=== PATIENT | female | born 1965 | race Caucasian/White ===

== ENCOUNTER 2023-08-25 15:58 | Emergency (ER) | payer OTHER ==
[~2023-08-25] VITALS: Ht 167.6 cm; Wt 80.3 kg
[2023-08-25 17:26] VITALS: BP 121/77; TEMP 98.4; O2SAT 99
== END 2023-08-25 17:30 | disposition home or self-care (01) ==
LOC: EDBD 16:00 → ER 16:00
DX: F10.139 Alcohol abuse with withdrawal, unspecified (principal); Z60.2 Problems related to living alone; Y90.9 Presence of alcohol in blood, level not specified

== ENCOUNTER 2023-11-04 01:52 | Inpatient (IN) | payer OTHER ==
[~2023-11-04] VITALS: Ht 170.2 cm; Wt 98.0 kg
[2023-11-04] MEDS ORDERED: IV NS 0.9% 1,000 ML BAG IV ONE (02:00)
[2023-11-04] MEDS ORDERED: ONDANSETRON HCL/PF 4 MG/2 ML VIAL ONE ×3 (02:18→09:35)
[2023-11-04] MEDS ORDERED: PANTOPRAZOLE 40 MG VIAL ONE (02:18)
[2023-11-04] MEDS ORDERED: PANTOPRAZOLE 80 MG in IV NS 0.9% 500 ML IV ONE (02:30)
[2023-11-04] MEDS ORDERED: ONDANSETRON HCL/PF 4 MG/2 ML VIAL IV ONE ×2 (02:30→04:00)
[2023-11-04 02:42] LABS: BASOPHILS % (AUTO) 0.3 % (0.0-2.0); HEMATOCRIT 41 % (39-51); HEMOGLOBIN 13.9 g/dL (13.5-17.5); LYMPHOCYTES # (AUTO) 0.9 K/uL (0.8-4.8); LYMPHOCYTES % (AUTO) 7.1 % (20.0-44.0); MEAN CORPUSCULAR HEMOGLOBIN 29 PG (26.0-33.0); MEAN CORPUSCULAR HGB CONC 34 g/dl (31.0-36.0); MEAN CORPUSCULAR VOLUME 87 fL (80-96); MONOCYTES # (AUTO) 0.5 K/uL (0.1-1.30); NEUTROPHILS # (AUTO) 11.2 K/uL (1.8-8.9); NEUTROPHILS % (AUTO) 88.6 % (43.0-81.0); PLATELET COUNT (AUTO) 140 K/uL (150-450); RED BLOOD CELL COUNT(AUTO) 4.71 MIL/uL (4.5-6.0); RED CELL DISTRIBUTION WIDTH 17.1 % (11.5-15.0); WHITE BLOOD COUNT (AUTO) 12.7 K/uL (4.3-11.0)
[2023-11-04 02:46] LABS: CALCIUM, SERUM 8.7 mg/dL (8.5-10.1); CARBON DIOXIDE 18 mmol/L (21-32); CHLORIDE 92 mmol/L (98-107); CREATININE 1.1 mg/dL (0.6-1.3); GLUCOSE 178 mg/dL (74-106); POTASSIUM 3.2 mmol/L (3.5-5.1); SODIUM SERUM 136 mmol/L (136-145); UREA NITROGEN, BLOOD 16 mg/dL (7-18)
[2023-11-04 02:50] LABS: INR 0.96 (0.91-1.10); PARTIAL THROMBOPLASTIN TIME 22.7 SEC (24.3-34.3); PROTHROMBIN TIME 10.2 SECS (9.2-11.1)
[2023-11-04 02:53] LABS: ALANINE AMINOTRANSFERASE 33 U/L (12-78); ALBUMIN 4.6 g/dL (3.4-5.0); ALCOHOL, BLOOD 361 mg/dL (0-10); ALKALINE PHOSPHATASE 107 U/L (46-116); ASPARTATE AMINOTRANSFERASE 43 U/L (15-37); BILIRUBIN,DIRECT 0.2 mg/dL (0.0-0.2); BILIRUBIN,TOTAL 0.6 mg/dL (0.2-1.0); TOTAL PROTEIN, SERUM 8.4 g/dL (6.4-8.2)
[2023-11-04 02:55] LABS: SALICYLATE 1.4 mg/dL (2.8-20.0)
[2023-11-04 02:56] LABS: ACETAMINOPHEN <10 ug/ml (10-30)
[2023-11-04] MEDS ORDERED: MORPHINE SULFATE INJ 4 MG/ML DISP.SYRIN ONE (03:15)
[2023-11-04] MEDS ORDERED: MORPHINE SULFATE INJ 2 MG/ML DISP.SYRIN IV ONE (03:30)
[2023-11-04] MEDS ORDERED: Thiamine 100 MG/ML VIAL ONE (04:57)
[2023-11-04] MEDS ORDERED: Thiamine 100 MG in IV D5W 50 ML IV ONE ×7 (05:00→13:00)
[2023-11-04] MEDS ORDERED: OCTREOTIDE 50 MCG in IV NS 0.9% 50 ML IJ ONE (07:30)
[2023-11-04] MEDS ORDERED: CEFTRIAXONE 1GM BAG (ER ONLY) 1 GM/50 ML PIGGYBACK IV ONE (07:30)
[2023-11-04] MEDS ORDERED: CEFTRIAXONE 1GM BAG (ER ONLY) 50 ML IV ONE (09:08)
[2023-11-04] MEDS ORDERED: ONDANSETRON HCL/PF - ER 4 MG/2 ML VIAL IV ONE (09:30)
[2023-11-04] MEDS ORDERED: MORPHINE SULFATE INJ 2 MG/ML DISP.SYRIN IV PRN (09:30)
[2023-11-04] MEDS ORDERED: POTASSIUM CHLORIDE 20 MEQ TAB.PRT.SR PO ONE (10:00)
[2023-11-04] MEDS ORDERED: LORAZEPAM INJ 2 MG/ML VIAL IV ONE (10:30)
[2023-11-04 10:45] LABS: CALCIUM, SERUM 7.8 mg/dL (8.5-10.1); CREATININE 0.9 mg/dL (0.6-1.3); POTASSIUM 3.6 mmol/L (3.5-5.1)
[2023-11-04 10:56] LABS: ALBUMIN 3.9 g/dL (3.4-5.0); BILIRUBIN,TOTAL 0.7 mg/dL (0.2-1.0); MAGNESIUM 1.6 mg/dL (1.8-2.4); PHOSPHORUS 2.7 mg/dL (2.5-4.9); TOTAL PROTEIN, SERUM 7.3 g/dL (6.4-8.2)
[2023-11-04 11:03] LABS: BASOPHILS % (AUTO) 0.3 % (0.0-2.0); HEMATOCRIT 36 % (39-51); LYMPHOCYTES # (AUTO) 1.1 K/uL (0.8-4.8); LYMPHOCYTES % (AUTO) 7.8 % (20.0-44.0); MEAN CORPUSCULAR HEMOGLOBIN 29 PG (26.0-33.0); MEAN CORPUSCULAR HGB CONC 33 g/dl (31.0-36.0); MEAN CORPUSCULAR VOLUME 88 fL (80-96); MONOCYTES # (AUTO) 1.3 K/uL (0.1-1.30); MONOCYTES % (AUTO) 9.3 % (2.0-12.0); NEUTROPHILS # (AUTO) 11.9 K/uL (1.8-8.9); NEUTROPHILS % (AUTO) 82.6 % (43.0-81.0); PLATELET COUNT (AUTO) 114 K/uL (150-450); RED BLOOD CELL COUNT(AUTO) 4.11 MIL/uL (4.5-6.0); RED CELL DISTRIBUTION WIDTH 17.2 % (11.5-15.0); WHITE BLOOD COUNT (AUTO) 14.4 K/uL (4.3-11.0)
[2023-11-04 12:00] VITALS: BP 162/90; TEMP 99.2; O2SAT 91
[2023-11-04] MEDS ORDERED: IV LR 1000 ML 1,000 ML IV PRN (13:00)
[2023-11-04] MEDS ORDERED: ACETAMINOPHEN 325 MG TABLET PO PRN (13:00)
[2023-11-04] MEDS ORDERED: Z GUARD REMEDY 4 OZ OINT TP PRN (13:00)
[2023-11-04] MEDS ORDERED: ONDANSETRON HCL/PF 4 MG/2 ML VIAL IVP PRN (13:00)
[2023-11-04] MEDS ORDERED: LORAZEPAM INJ 2 MG/ML VIAL IV PRN (13:00)
[2023-11-04] MEDS: Magnesium 1GM/D5W 100ML PREMIX 100 ML IV SCH ×4 (13:24→16:46)
[2023-11-04] MEDS: PANTOPRAZOLE 40 MG VIAL IV SCH (13:55)
[2023-11-04 14:53] LABS: HEMATOCRIT 36 % (39-51); HEMOGLOBIN 11.8 g/dL (13.5-17.5); MEAN CORPUSCULAR HEMOGLOBIN 29 PG (26.0-33.0); MEAN CORPUSCULAR HGB CONC 33 g/dl (31.0-36.0); MEAN CORPUSCULAR VOLUME 89 fL (80-96); PLATELET COUNT (AUTO) 104 K/uL (150-450); RED BLOOD CELL COUNT(AUTO) 4.02 MIL/uL (4.5-6.0); RED CELL DISTRIBUTION WIDTH 17.2 % (11.5-15.0)
[2023-11-04 16:00] VITALS: BP 148/94; TEMP 98.4; O2SAT 94
[2023-11-04] MEDS ORDERED: MIRT7.5T10 PO (18:40)
[2023-11-04] MEDS ORDERED: PANT40TA2 PO (18:40)
[2023-11-04] MEDS ORDERED: TOPI100T38 PO (18:40)
[2023-11-04] MEDS ORDERED: FERR325T23 PO (18:40)
[2023-11-04] MEDS ORDERED: GABA300C PO (18:40)
[2023-11-04] MEDS ORDERED: MULT-213 PO (18:40)
[2023-11-04] MEDS ORDERED: HYDR50TA61 PO (18:40)
[2023-11-04] MEDS ORDERED: TRAZ-257 PO (18:40)
[2023-11-04] MEDS ORDERED: FOLI0.8T3 PO (18:40)
[2023-11-04] MEDS ORDERED: LORA-258 PO (18:40)
[2023-11-04] MEDS ORDERED: ACAM333T8 PO (18:40)
[2023-11-04] MEDS ORDERED: THIA100T88 PO (18:40)
[2023-11-04] MEDS ORDERED: CHOL200059 PO (18:40)
[2023-11-04] MEDS: LORAZEPAM INJ 2 MG/ML VIAL IV PRN (20:44)
[2023-11-04 20:47] LABS: HEMATOCRIT 35 % (39-51); HEMOGLOBIN 11.8 g/dL (13.5-17.5); MEAN CORPUSCULAR HEMOGLOBIN 30 PG (26.0-33.0); MEAN CORPUSCULAR HGB CONC 34 g/dl (31.0-36.0); MEAN CORPUSCULAR VOLUME 88 fL (80-96); PLATELET COUNT (AUTO) 90 K/uL (150-450); WHITE BLOOD COUNT (AUTO) 12.5 K/uL (4.3-11.0)
[2023-11-04 22:00] VITALS: BP 143/83; TEMP 98.6; O2SAT 94
[2023-11-05] VITALS: BP 142/99; TEMP 99; O2SAT 94
[2023-11-05] MEDS: PANTOPRAZOLE 40 MG VIAL IV SCH ×2 (00:27→15:02)
[2023-11-05 02:12] LABS: HEMATOCRIT 35 % (39-51); HEMOGLOBIN 11.8 g/dL (13.5-17.5); MEAN CORPUSCULAR HEMOGLOBIN 30 PG (26.0-33.0); MEAN CORPUSCULAR HGB CONC 34 g/dl (31.0-36.0); MEAN CORPUSCULAR VOLUME 88 fL (80-96); PLATELET COUNT (AUTO) 81 K/uL (150-450); RED BLOOD CELL COUNT(AUTO) 3.98 MIL/uL (4.5-6.0); RED CELL DISTRIBUTION WIDTH 17.3 % (11.5-15.0)
[2023-11-05 06:12] VITALS: BP 148/96; TEMP 98.4
[2023-11-05 07:08] LABS: HEMATOCRIT 36 % (39-51); HEMOGLOBIN 12.2 g/dL (13.5-17.5); LYMPHOCYTES # (AUTO) 0.6 K/uL (0.8-4.8); LYMPHOCYTES % (AUTO) 7.1 % (20.0-44.0); MEAN CORPUSCULAR HEMOGLOBIN 30 PG (26.0-33.0); MEAN CORPUSCULAR HGB CONC 34 g/dl (31.0-36.0); MEAN CORPUSCULAR VOLUME 89 fL (80-96); MONOCYTES # (AUTO) 0.9 K/uL (0.1-1.30); NEUTROPHILS # (AUTO) 7.5 K/uL (1.8-8.9); NEUTROPHILS % (AUTO) 82.9 % (43.0-81.0); PLATELET COUNT (AUTO) 81 K/uL (150-450); RED BLOOD CELL COUNT(AUTO) 4.05 MIL/uL (4.5-6.0); RED CELL DISTRIBUTION WIDTH 17.1 % (11.5-15.0); WHITE BLOOD COUNT (AUTO) 9.1 K/uL (4.3-11.0)
[2023-11-05 07:28] LABS: ALBUMIN 3.8 g/dL (3.4-5.0); BILIRUBIN,TOTAL 1.2 mg/dL (0.2-1.0); CALCIUM, SERUM 8.6 mg/dL (8.5-10.1); CREATININE 0.7 mg/dL (0.6-1.3); MAGNESIUM 2.7 mg/dL (1.8-2.4); PHOSPHORUS 1.3 mg/dL (2.5-4.9); POTASSIUM 3.2 mmol/L (3.5-5.1); TOTAL PROTEIN, SERUM 7.2 g/dL (6.4-8.2)
[2023-11-05 08:00] VITALS: BP 150/94; TEMP 98.8; O2SAT 98
[2023-11-05] MEDS: LORAZEPAM INJ 2 MG/ML VIAL IV PRN ×4 (08:43→20:52)
[2023-11-05] MEDS ORDERED: THIAMINE HCL 100 MG TABLET PO SCH (09:00)
[2023-11-05 09:58] LABS: ANISOCYTOSIS 1+; BASOPHILS % (MANUAL) 0 % (0.0-2.0); EOSINOPHILS % (MANUAL) 0 % (0-4); LYMPHOCYTES % (MANUAL) 8 % (16-48); MONOCYTES % (MANUAL) 9 % (0-11.0); NEUTROPHILS % (MANUAL) 83 (42-76); PLATELET ESTIMATE DECREASED; STOMATOCYTES 1+
[2023-11-05] MEDS: POTASSIUM CHLORIDE 20 MEQ TAB.PRT.SR PO SCH ×2 (11:05→12:00)
[2023-11-05 12:00] VITALS: BP 142/102; TEMP 98.1; O2SAT 98
[2023-11-05 16:00] VITALS: BP 135/99; TEMP 97.9; O2SAT 95
[2023-11-05] MEDS ORDERED: K PHOS NEUTRAL 250 MG TABLET PO ONE (16:00)
[2023-11-05 20:00] VITALS: BP 110/77; TEMP 97.5; O2SAT 96
[2023-11-05] MEDS ORDERED: IV NS W/20MEQ KCL 1L IV ONE ×2 (20:00)
[2023-11-05] MEDS ORDERED: POTASSIUM CL. PREMIX PERIPHER. 50 ML IV SCH (20:00)
[2023-11-06] VITALS: BP 133/96; TEMP 99; O2SAT 97
[2023-11-06] MEDS: PANTOPRAZOLE 40 MG VIAL IV SCH (01:25)
[2023-11-06 02:56] LABS: APPEARANCE,URINE CLEAR (CLEAR); BILIRUBIN,URINE 1+ (NEGATIVE); BLOOD, URINE NEGATIVE Ery/uL (NEGATIVE); COLOR,URINE DARK YELLOW (YELLOW); KETONES,URINE TRACE mg/dL (NEGATIVE); LEUKOCYTE ESTERASE ,URINE NEGATIVE (NEGATIVE); NITRITE, URINE NEGATIVE (NEGATIVE); PROTEIN,URINE 1+ mg/dl (NEGATIVE); UGLUCOSE NEGATIVE (NEGATIVE); UROBILINOGEN,URINE 0.2 EU/dL (0.2)
[2023-11-06 03:02] LABS: ADD URINE CULTURE NO; BACTERIA,URINE Rare /HPF (None Seen); RBC,URINE 0-2 /HPF (0-2); SQUAMOUS EPITHELIAL CELL,UR Few /HPF (None Seen); WBC,URINE 0-2 /HPF (0-3)
[2023-11-06 03:13] LABS: AMPHETAMINE, URINE NEGATIVE (NEGATIVE); BARBITURATE, URINE NEGATIVE (NEGATIVE); COCCAINE, URINE NEGATIVE (NEGATIVE); OPIATE, URINE NEGATIVE (NEGATIVE); PHENCYCLIDINE SCREEN,URINE NEGATIVE (NEGATIVE)
[2023-11-06 03:43] LABS: BENZODIAZEPINE, URINE POSITIVE (NEGATIVE); CANNABINOID, URINE POSITIVE (NEGATIVE)
[2023-11-06 04:00] VITALS: BP 138/92; TEMP 97.7; O2SAT 96
== END 2023-11-06 07:00 | disposition left against medical advice (07) | DRG 241 ==
LOC: ER 01:54 → TELE-TD 09:02 → TELE1 10:03
PROVIDERS: ADMIT Nurse Practitioner Acute Care; ATTEND Nurse Practitioner Acute Care
PROC: 0DJ08ZZ Inspection of Upper Intestinal Tract, Via Natural or Artificial Opening Endoscopic (ICD-10-PCS; principal; 2023-11-05)
DX: K29.21 Alcoholic gastritis with bleeding (principal); D69.6 Thrombocytopenia, unspecified; K76.6 Portal hypertension; D62 Acute posthemorrhagic anemia; F10.239 Alcohol dependence with withdrawal, unspecified; K44.9 Diaphragmatic hernia without obstruction or gangrene; Y90.8 Blood alcohol level of 240 mg/100 ml or more; D72.829 Elevated white blood cell count, unspecified; E66.9 Obesity, unspecified; E78.5 Hyperlipidemia, unspecified; E83.42 Hypomagnesemia; E87.6 Hypokalemia; F12.10 Cannabis abuse, uncomplicated; I10 Essential (primary) hypertension; R13.10 Dysphagia, unspecified; R74.01 Elevation of levels of liver transaminase levels; F32.A Depression, unspecified; Y23.0XXS Shotgun discharge, undetermined intent, sequela; F17.210 Nicotine dependence, cigarettes, uncomplicated; Z68.33 Body mass index [BMI] 33.0-33.9, adult
CPT/HCPCS: 36415; 71045-TC; 80048-TC; 80053-TC; 80061-TC; 80076-TC; 81001; 82962-TC; 83540-TC; 83690-TC; 83735-TC; 84100-TC; 85025-TC; 85027-TC; 85730-TC; 86850-TC; A4223; C9113; G0378; G0480; J0696; J2060; J2270; J2354; J2405; J2704; J2765; J3411; J3475; J3480; J3490; J7030; J7040; J7060; J7120

== ENCOUNTER 2025-02-04 15:44 | Emergency (ER) | payer OTHER ==
[~2025-02-04] VITALS: Ht 167.6 cm; Wt 93.4 kg
[~2025-02-04 15:44] MED LIST: ACAM333T8 PO; CHOL200059 PO; FERR325T23 PO; FOLI0.8T3 PO; GABA300C PO; HYDR50TA61 PO; LORA-258 PO; MIRT7.5T10 PO; MULT-213 PO; PANT40TA2 PO; THIA100T88 PO; TOPI100T38 PO; TRAZ-257 PO
[2025-02-04] MEDS ORDERED: IBUP-1490 PO (16:27)
[2025-02-04] MEDS ORDERED: MORPHINE SULFATE INJ 4 MG/ML DISP.SYRIN ONE (16:34)
[2025-02-04] MEDS: MORPHINE SULFATE INJ 2 MG/ML DISP.SYRIN IM ONE (16:40)
[2025-02-04 16:52] VITALS: BP 124/92; TEMP 98.4; O2SAT 100
== END 2025-02-04 16:53 | disposition home or self-care (01) ==
LOC: ER 15:50
DX: R10.2 Pelvic and perineal pain (principal); M54.50 Low back pain, unspecified; F17.200 Nicotine dependence, unspecified, uncomplicated; R51.9 Headache, unspecified; Z79.899 Other long term (current) drug therapy
CPT/HCPCS: 99283; 96372; J2270